=== PATIENT | male | born 1935 | race Caucasian/White ===

== ENCOUNTER 2017-12-16 12:39 | Observation (INO) ==
[2017-12-16] MEDS ORDERED: Nitroglycerin 0.4 MG TAB.SUBL SL ONE (13:08)
[2017-12-16] MEDS ORDERED: Aspirin 81 MG TAB.CHEW PO ONE (13:08)
[2017-12-16] MEDS ORDERED: Isovue-370 500 ML INFUS..BTL IV ONE (13:11)
--- NOTE | 2017-12-16 13:12 | Emergency Department Note ---
Disposition Clinical Impression: NSTEMI (non-ST elevated myocardial infarction) Disposition: Admitted As Inpatient Condition: Fair Chest Pain HPI - General Chief Complaint: ED Chest Pain Stated Complaint: chest pain Time Seen by Provider: 12/16/17 12:55 Source: patient Limitations: no limitations Vital Signs Reviewed: Yes Nursing Notes Reviewed: Yes - History of Present Illness HPI Narrative: 52-year-old male presents emergency department with concern for chest pain. Patient states that he has history of coronary artery disease with 5 stents, but has never felt this type of pain before. Patient states that his like a pressure that he feels is almost a nauseous feeling. Patient has had no aspirin today. Patient also has history of hypertension and hyperlipidemia. Patient was riding a vehicle when it started. Reports that his high blood pressure is normally under control. Severity scale (1-10): 8 - Related Data Home Medications Medication Instructions Recorded Confirmed Levothyroxine [Synthroid] 75 mcg PO DAILY 05/19/15 12/16/17 Atorvastatin [Lipitor] 10 mg PO HS 12/05/16 12/16/17 Clopidogrel [Plavix] 75 mg PO DAILY 12/05/16 12/16/17 Previous Rx's Medication Instructions Recorded HYDROcodone/Acet 5/325 mg [[place] 1 tab PO Q6H PRN #10 tab 12/05/16 5-325 mg] Allergies Allergy/AdvReac Type Severity Reaction Status Date / Time lisinopril Allergy Rash Verified 12/16/17 12:48 metoprolol Allergy See Verified 12/16/17 12:48 Comments All systems ED: reviewed and negative except as stated. Review of Systems: As Per HPI Constitutional: Denies: fever Cardiovascular: Reports: chest pain. Denies: palpitations, dyspnea on exertion Respiratory: Reports: dyspnea. Denies: cough Gastrointestinal: Denies: abdominal pain, nausea, vomiting Genitourinary: Denies: urgency, dysuria, frequency Musculoskeletal: Denies: back pain Neurological: Denies: headache, weakness, numbness, paresthesias Chest Pain PMH - Past Medical History Medical history: Reports: arthritis, coronary artery disease, hypertension, thyroid disease Surgical history: Reports: angioplasty/stent Psychiatric history: Reports: no psych history - Social History Smoking Status: Never smoker Alcohol use: Reports: rarely Drug use: Reports: none Physical Exam - General Limitations: no limitations General appearance: alert, in distress - Head Head exam: atraumatic, normocephalic - Eye Eye exam: Present: EOMI. Absent: scleral icterus, conjunctival injection - ENT ENT exam: normal exam, normal oropharynx - Neck Neck exam: Present: trachea midline. Absent: tenderness, meningismus - Chest Chest inspection: Present: normal inspection, symmetric chest wall rise - Respiratory Respiratory exam: Present: normal lung sounds bilaterally. Absent: respiratory distress - Cardiovascular Cardiovascular exam: Present: regular rate, normal rhythm, normal heart sounds - Abdominal Exam Abdominal exam: Present: soft, Non-Tender. Absent: distention, guarding, rebound, rigidity - Extremities Exam Extremities exam: Present: normal capillary refill - Back Exam Back exam: Present: full ROM - Neurological Exam Neurological exam: Present: alert, oriented X3 - Psychiatric Psychiatric exam: Present: normal affect, normal mood - Skin Skin exam: Present: warm, dry, intact Course Vital Signs Temperature 98.5 F 12/16/17 12:46 Pulse Rate 59 12/16/17 12:46 Respiratory Rate 22 12/16/17 12:46 Blood Pressure 190/95 12/16/17 12:46 O2 Sat by Pulse Oximetry 99 12/16/17 12:46 Temperature 98.4 F 12/17/17 06:59 Pulse Rate 60 12/17/17 06:59 Respiratory Rate 19 12/17/17 06:59 Blood Pressure 118/67 12/17/17 06:59 O2 Sat by Pulse Oximetry 98 12/17/17 06:59 Oxygen Delivery Oxygen Delivery Room Air Chest Pain - [facility] Narrative Medical decision making narrative: 82-year-old male presents to the emergency department with concern for chest pain. We will obtain electrocardiogram. This revealed some nonspecific ST changes. We order a troponin, BNP, BMP, portable chest x-ray. Patient is hypertensive here with a systolic approaching 200 over a diastolic that is in the low 100s. At this time, we will also obtain a CTA of the chest to rule out dissection. We have given patient aspirin here in the emergency department. We will also give sublingual nitroglycerin. Date of the chest did not reveal any evidence of pulmonary embolus or aortic dissection. Did report aortic and coronary atherosclerosis. After sedation of sublingual nitroglycerin, patient's chest pain went away. We repeated an electrocardiogram. Shows septal and lateral leads and T-wave changes in morphology that are concerning. I spoke with Dr. Hill, the molder pipe covering with these findings. He agreed to be the consult on the floor. Patient had initial troponin 0.05. However, with the early onset of symptoms, there is concern that the patient's troponin could be more elevated. We started patient on heparin via ACS protocol. The patient agreed for plan to be admitted. Patient not having chest pain at time of admission from the emergency department. Chest X-Ray 12/16/17 13:08 IMPRESSION: Overall stable appearing chest without acute cardiopulmonary process. D/ / Evangelista Linares MD / Evangelista Linares MD Interpreting Provider: Evangelista Linares MD Chest CTA 12/16/17 13:11 IMPRESSION: 1. No acute pulmonary emboli. 2. No acute pulmonary process. 3. Aortic and coronary atherosclerosis. D/ / 12/16/2017 15:20:36 Obi Fowler MD / mayuri Interpreting Provider: Obi Fowler MD - Lab Data Result diagrams: 12/17/17 03:08 12/17/17 03:08 Lab Results 12/16/17 12/16/17 12/16/17 Range/Units 13:18 13:18 13:18 WBC 6.9 (4.3-11.1) K/mcL RBC 4.87 (4.19-5.50) M/mcL Hgb 14.5 (12.9-16.9) g/dL Hct 43.6 (37.5-50.1) % MCV 89.5 (83.0-100.0) fL MCH 29.8 (28.0-33.3) pg MCHC 33.3 (31.6-35.5) g/dL RDW 13.4 (11.5-14.5) % Plt Count 161 (140-400) K/mcL MPV 10.7 (9.4-12.4) fL Immature Gran % 0.6 (0-4) % Seg Neutrophils % 66.4 % Lymphocytes % 20.6 % Monocytes % 8.9 % Eosinophils % 2.6 % Basophils % 0.9 % Neutrophils # 4.6 (1.6-8.9) K/mcL Lymphocytes # 1.4 (0.6-4.6) K/mcL Monocytes # 0.6 (0.0-1.3) K/mcL Eosinophils # 0.2 (0.0-0.6) K/mcL Basophils # 0.1 (0.0-0.2) K/mcL PT 10.5 (9.4-12.1) Seconds INR 1.0 APTT 26.8 (26.0-36.0) Seconds Sodium (136-145) mEq/L Potassium (3.5-5.1) mEq/L Chloride (98-107) mEq/L Carbon Dioxide (23-29) mEq/L BUN (8-23) mg/dL Creatinine (0.70-1.30) mg/dL Est GFR ( Amer) (> 60) Est GFR (Non-Af Amer) (> 60) BUN/Creatinine Ratio (6-26) Glucose (70-105) mg/dL Calculated Osmolality (280-300) Calcium (8.6-10.3) mg/dL Troponin I (< 0.04) ng/mL B-Natriuretic Peptide 78 (Less than 100) pg/mL 12/16/17 Range/Units 13:18 WBC (4.3-11.1) K/mcL RBC (4.19-5.50) M/mcL Hgb (12.9-16.9) g/dL Hct (37.5-50.1) % MCV (83.0-100.0) fL MCH (28.0-33.3) pg MCHC (31.6-35.5) g/dL RDW (11.5-14.5) % Plt Count (140-400) K/mcL MPV (9.4-12.4) fL Immature Gran % (0-4) % Seg Neutrophils % % Lymphocytes % % Monocytes % % Eosinophils % % Basophils % % Neutrophils # (1.6-8.9) K/mcL Lymphocytes # (0.6-4.6) K/mcL Monocytes # (0.0-1.3) K/mcL Eosinophils # (0.0-0.6) K/mcL Basophils # (0.0-0.2) K/mcL PT (9.4-12.1) Seconds INR APTT (26.0-36.0) Seconds Sodium 139 (136-145) mEq/L Potassium 4.7 (3.5-5.1) mEq/L Chloride 106 (98-107) mEq/L Carbon Dioxide 22 L (23-29) mEq/L BUN 18 (8-23) mg/dL Creatinine 1.12 (0.70-1.30) mg/dL Est GFR ( Amer) > 60 (> 60) Est GFR (Non-Af Amer) > 60 (> 60) BUN/Creatinine Ratio 16 (6-26) Glucose 103 (70-105) mg/dL Calculated Osmolality 290 (280-300) Calcium 9.0 (8.6-10.3) mg/dL Troponin I 0.05 H* (< 0.04) ng/mL B-Natriuretic Peptide (Less than 100) pg/mL - EKG Data EKG attestation: Yes I reviewed and interpreted this EKG. EKG results narrative: 12:45 Ventricular rate 62 bpm, OK interval 240 ms, QRS duration 94 ms, QT 413 ms, QTC 482 ms, normal axis. Atrial paced rhythm. There are nonspecific ST changes noted. ST depression of 1 mm in V2 and 0.5 mm in V3 that is new from his previous electrocardiogram obtained on 12/05/2016.
[2017-12-16 13:44] LABS: Basophils # 0.1 K/mcL (0.0-0.2); Basophils % 0.9 %; Eosinophils # 0.2 K/mcL (0.0-0.6); Eosinophils % 2.6 %; Hematocrit 43.6 % (37.5-50.1); Hemoglobin 14.5 g/dL (12.9-16.9); Immature Granulocytes % 0.6 % (0-4); Lymphocytes # 1.4 K/mcL (0.6-4.6); Lymphocytes % 20.6 %; Mean Corpuscular HGB Conc 33.3 g/dL (31.6-35.5); Mean Corpuscular Hemoglobin 29.8 pg (28.0-33.3); Mean Corpuscular Volume 89.5 fL (83.0-100.0); Mean Platelet Volume 10.7 fL (9.4-12.4); Monocytes # 0.6 K/mcL (0.0-1.3); Monocytes % 8.9 %; Neutrophils # 4.6 K/mcL (1.6-8.9); Platelet Count 161 K/mcL (140-400); Red Blood Count 4.87 M/mcL (4.19-5.50); Red Cell Distribution Width 13.4 % (11.5-14.5); Segmented Neutrophils % 66.4 %
[2017-12-16 13:53] LABS: Prothrombin Time 10.5 Seconds (9.4-12.1)
[2017-12-16 13:56] LABS: Activated Partial Thrombo Time 26.8 Seconds (26.0-36.0)
[2017-12-16 14:18] LABS: Troponin I 0.05 ng/mL (< 0.04)
[2017-12-16 14:19] LABS: BUN/Creatinine Ratio 16 (6-26); Blood Urea Nitrogen 18 mg/dL (8-23); Carbon Dioxide 22 mEq/L (23-29); Chloride 106 mEq/L (98-107); Glucose 103 mg/dL (70-105); Osmolality,Calculated 290 (280-300); Potassium 4.7 mEq/L (3.5-5.1); Sodium 139 mEq/L (136-145); eGFR For African Americans > 60 (> 60); eGFR For Non-African Americans > 60 (> 60)
[2017-12-16] MEDS ORDERED: *HR* Heparin 5,000 UNIT/ML VIAL IVP ONE (14:29)
[2017-12-16] MEDS ORDERED: *HR* Heparin 5,000 UNIT/ML VIAL IVP PRN ×2 (14:29)
[2017-12-16] MEDS ORDERED: Heparin 25,000 UNIT/500 ML D5W 25,000 UNIT/500 ML BAG IVC SCH (14:30)
--- NOTE | 2017-12-16 14:56 | Emergency Department Note ---
Disposition Clinical Impression: NSTEMI (non-ST elevated myocardial infarction) Disposition: Admitted As Inpatient Forms: ED Satisfaction Letter General Adult HPI - General Chief complaint: ED Chest Pain Stated complaint: chest pain Time Seen by Provider: 12/16/17 12:55 Source: patient Limitations: no limitations - History of Present Illness Pain Scale: 8 - Related Data Home Medications Medication Instructions Recorded Confirmed Levothyroxine [Synthroid] 75 mcg PO DAILY 05/19/15 12/16/17 Atorvastatin [Lipitor] 10 mg PO HS 12/05/16 12/16/17 Clopidogrel [Plavix] 75 mg PO DAILY 12/05/16 12/16/17 Previous Rx's Medication Instructions Recorded HYDROcodone/Acet 5/325 mg [[place] 1 tab PO Q6H PRN #10 tab 12/05/16 5-325 mg] Allergies Allergy/AdvReac Type Severity Reaction Status Date / Time lisinopril Allergy Rash Verified 12/16/17 12:48 metoprolol Allergy See Verified 12/16/17 12:48 Comments Constitutional: Denies: fever Cardiovascular: Reports: chest pain. Denies: palpitations, dyspnea on exertion Respiratory: Reports: dyspnea. Denies: cough Gastrointestinal: Denies: abdominal pain, nausea, vomiting Genitourinary: Denies: urgency, dysuria, frequency Musculoskeletal: Denies: back pain Neurological: Denies: headache, weakness, numbness, paresthesias Past Medical History - Past Medical History Medical history: Reports: arthritis, coronary artery disease, hypertension, thyroid disease Surgical history: Reports: angioplasty/stent Psychiatric history: Reports: no psych history - Social History Smoking Status: Never smoker Smokeless Tobacco Status: No Alcohol use: Reports: rarely Drug use: Reports: none Physical Exam - General Limitations: no limitations General appearance: alert, in distress Course Vital Signs Temperature 98.5 F 12/16/17 12:46 Pulse Rate 59 12/16/17 12:46 Respiratory Rate 22 12/16/17 12:46 Blood Pressure 190/95 12/16/17 12:46 O2 Sat by Pulse Oximetry 99 12/16/17 12:46 Temperature 98.5 F 12/16/17 12:46 Pulse Rate 60 12/16/17 14:19 Respiratory Rate 18 12/16/17 14:19 Blood Pressure 138/81 12/16/17 14:19 O2 Sat by Pulse Oximetry 95 12/16/17 14:19 Oxygen Delivery Oxygen Delivery Room Air Medical Decision Making - Lab Data Result diagrams: 12/16/17 13:18 12/16/17 13:18 Lab Results 12/16/17 12/16/17 12/16/17 Range/Units 13:18 13:18 13:18 WBC 6.9 (4.3-11.1) K/mcL RBC 4.87 (4.19-5.50) M/mcL Hgb 14.5 (12.9-16.9) g/dL Hct 43.6 (37.5-50.1) % MCV 89.5 (83.0-100.0) fL MCH 29.8 (28.0-33.3) pg MCHC 33.3 (31.6-35.5) g/dL RDW 13.4 (11.5-14.5) % Plt Count 161 (140-400) K/mcL MPV 10.7 (9.4-12.4) fL Immature Gran % 0.6 (0-4) % Seg Neutrophils % 66.4 % Lymphocytes % 20.6 % Monocytes % 8.9 % Eosinophils % 2.6 % Basophils % 0.9 % Neutrophils # 4.6 (1.6-8.9) K/mcL Lymphocytes # 1.4 (0.6-4.6) K/mcL Monocytes # 0.6 (0.0-1.3) K/mcL Eosinophils # 0.2 (0.0-0.6) K/mcL Basophils # 0.1 (0.0-0.2) K/mcL PT 10.5 (9.4-12.1) Seconds INR 1.0 APTT 26.8 (26.0-36.0) Seconds Sodium (136-145) mEq/L Potassium (3.5-5.1) mEq/L Chloride (98-107) mEq/L Carbon Dioxide (23-29) mEq/L BUN (8-23) mg/dL Creatinine (0.70-1.30) mg/dL Est GFR ( Amer) (> 60) Est GFR (Non-Af Amer) (> 60) BUN/Creatinine Ratio (6-26) Glucose (70-105) mg/dL Calculated Osmolality (280-300) Calcium (8.6-10.3) mg/dL Troponin I (< 0.04) ng/mL B-Natriuretic Peptide 78 (Less than 100) pg/mL 12/16/17 Range/Units 13:18 WBC (4.3-11.1) K/mcL RBC (4.19-5.50) M/mcL Hgb (12.9-16.9) g/dL Hct (37.5-50.1) % MCV (83.0-100.0) fL MCH (28.0-33.3) pg MCHC (31.6-35.5) g/dL RDW (11.5-14.5) % Plt Count (140-400) K/mcL MPV (9.4-12.4) fL Immature Gran % (0-4) % Seg Neutrophils % % Lymphocytes % % Monocytes % % Eosinophils % % Basophils % % Neutrophils # (1.6-8.9) K/mcL Lymphocytes # (0.6-4.6) K/mcL Monocytes # (0.0-1.3) K/mcL Eosinophils # (0.0-0.6) K/mcL Basophils # (0.0-0.2) K/mcL PT (9.4-12.1) Seconds INR APTT (26.0-36.0) Seconds Sodium 139 (136-145) mEq/L Potassium 4.7 (3.5-5.1) mEq/L Chloride 106 (98-107) mEq/L Carbon Dioxide 22 L (23-29) mEq/L BUN 18 (8-23) mg/dL Creatinine 1.12 (0.70-1.30) mg/dL Est GFR ( Amer) > 60 (> 60) Est GFR (Non-Af Amer) > 60 (> 60) BUN/Creatinine Ratio 16 (6-26) Glucose 103 (70-105) mg/dL Calculated Osmolality 290 (280-300) Calcium 9.0 (8.6-10.3) mg/dL Troponin I 0.05 H* (< 0.04) ng/mL B-Natriuretic Peptide (Less than 100) pg/mL Attestation Statement - Attestation Attestation: I examined this patient and my medical decision-making was reviewed with the Resident Physician. I agree with the documented findings, disposition and treatment plan as described except to the extent set forth below. 82 year old male presnte to the eD with complaints of chest pain and has a history of 5 cardaic stents done at [facility]. Patient states that he has have right sided chest pressure and that nitro trial helped him with his symptoms. 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 We will start heparin for NSTEMI.
[2017-12-16] MEDS ORDERED: Nitroglycerin 1 INCH/GM PACKET TP ONE (16:10)
[2017-12-16] MEDS ORDERED: Naloxone 0.4 MG/ML INJ IVP PRN (16:14)
--- NOTE | 2017-12-16 16:19 | Internal Med History&Physical ---
Date of Encounter: 12/16/17 Time of Encounter: 16:17 Internal Medicine - H&P: HPI Chief complaint: Chest pain History of present illness: Mr. Valenzuela is a 82 year old male history of CAD status post 5 stents last being at least 5 or 6 years ago possibly in 2010 who. With cardiology in [place] Dr Neli Treviño who presents with acute onset right-sided chest pain. Chest pain or crit 20 minutes prior to arrival this afternoon while he was out shopping with ambulation around store. Described her right-sided chest pain along the breast with radiation to the right armpit/ axilla, rated 10 out of 10 in the initial onset, aching quality. On arrival in the ED was started on heparin drip when there was mild troponin elevation. On interview chest pain was resolved. He reports a history of uncontrolled hypertension and is only on 100 mg of losartan daily Receive CT PE in the ED that was negative CT/CT angio chest IMPRESSION: 1. No acute pulmonary emboli. 2. No acute pulmonary process. 3. Aortic and coronary atherosclerosis. XR/XR chest 1V portable IMPRESSION: Overall stable appearing chest without acute cardiopulmonary process. EKG personally reviewed with rate 61, paced rhythm, nonspecific ST-T changes Past Med Surg Social Fam HX - Past Medical History Medical history: arthritis, coronary artery disease, hypertension, thyroid disease Psychiatric history: no psych history - Past Surgical History Surgical History: angioplasty/stent Additional surgical history: cardiac stent - Social History Smoking Status: Never smoker Smokeless Tobacco Status: No Alcohol use: rarely Drug use: none Internal Medicine - H&P: Meds Levothyroxine [Synthroid] 75 mcg PO DAILY 05/19/15 [History] Atorvastatin [Lipitor] 10 mg PO HS 12/05/16 [History] Clopidogrel [Plavix] 75 mg PO DAILY 12/05/16 [History] HYDROcodone/Acet 5/325 mg [[place] 5-325 mg] 1 tab PO Q6H PRN #10 tab 12/05/16 [Rx ] 3 Allergy/AdvReac Type Severity Reaction Status Date / Time lisinopril Allergy Rash Verified 12/16/17 12:48 metoprolol Allergy See Verified 12/16/17 12:48 Comments All Systems PM: A 10-system review of systems was performed and is negative for pertinent findings except as documented above in the HPI. Review of systems: ROS 14 point review of systems reviewed as best as possible given presentation. Pertinent positive or negative as per HPI or otherwise reviewed as negative - Constitutional Vitals: Temp Pulse Resp BP Pulse Ox 98.5 F 61 18 191/119 95 12/16/17 12:46 12/16/17 15:53 12/16/17 15:53 12/16/17 15:53 12/16/17 15:53 Exam: General - AAO x 3 Psych - Appropriate affect/speech. No agitation Eyes - JERROD. Eye lids intact. No scleral icterus Neuro - No gross peripheral or central neuro deficits on inspection Heart - Sinus. RRR. S1 and S2 present. No added HS/murmurs appreciated. No elevated JVD appreciated. Lung - Adequate air entry b/l, No crackles/wheezes appreciated GI - Soft, non-tender. No hepatosplenomegaly/ascites. BS+ - No CVA/suprapubic tenderness or palpable bladder distension Skin - Intact. No rash/petechiae/ecchymosis. Warm extremities MSK - Joints with normal ROM. No joint swellings Internal Med - H&P Results - Labs CBC & Chem 7: 12/16/17 13:18 12/16/17 13:18 Labs: Short CBC 12/16/17 Range/Units 13:18 WBC 6.9 (4.3-11.1) K/mcL Hgb 14.5 (12.9-16.9) g/dL Hct 43.6 (37.5-50.1) % Plt Count 161 (140-400) K/mcL Neutrophils # 4.6 (1.6-8.9) K/mcL BMP 12/16/17 13:18 Sodium 139 Potassium 4.7 Chloride 106 Carbon Dioxide 22 L BUN 18 Creatinine 1.12 Glucose 103 Calcium 9.0 Cardiac Enzymes 12/16/17 Range/Units 13:18 Troponin I 0.05 H* (< 0.04) ng/mL - Impressions ITS Impressions Chest X-Ray 12/16/17 13:08 IMPRESSION: Overall stable appearing chest without acute cardiopulmonary process. D/ / Evangelista Linares MD / Evangelista Linares MD Interpreting Provider: vEangelista Linares MD Chest CTA 12/16/17 13:11 IMPRESSION: 1. No acute pulmonary emboli. 2. No acute pulmonary process. 3. Aortic and coronary atherosclerosis. D/ / 12/16/2017 15:20:36 Obi Fowler MD / mayuri Interpreting Provider: Obi Fowler MD - Assessment and plan (1) Chest pain Current Visit: Yes Status: Acute Assessment and plan: trop leak - trend trop - heparin gtt started in the ED chest pain free on interview, will need to control uncontrolled HTN - suspect troponin elevation could be related to uncontrolled hypertension Qualifiers: Chest pain type: other chest pain Qualified Code(s): R07.89 - Other chest pain; R07.8 - Other chest pain (2) Hypertensive urgency Current Visit: Yes Status: Acute Assessment and plan: only on 100mg losartan at home add norvasc, imdur IV hydralazine prn in an attempt to spare gtt therapy (3) CAD (coronary artery disease) Current Visit: Yes Status: Acute Assessment and plan: s/p 5 stents - follow closely for now Qualifiers: Associated angina: without angina Qualified Code(s): I25.10 - Atherosclerotic heart disease of [place] coronary artery without angina pectoris (4) HLD (hyperlipidemia) Current Visit: Yes Status: Acute Assessment and plan: continue med Qualifiers: Hyperlipidemia type: mixed hyperlipidemia Qualified Code(s): E78.2 - Mixed hyperlipidemia - Time Spent With Patient Total time spent is greater than 50% in coordination of care (as documented) at patient's floor/unit and/or counseling patient:
[2017-12-16] MEDS ORDERED: Isosorbide MONOnitrate (24 HR) 30 MG TAB.ER.24H PO SCH (18:00)
[2017-12-16] MEDS: amLODIPine 5 MG TABLET PO SCH (18:01)
--- NOTE | 2017-12-16 22:09 | Electrocardiograph Report ---
[facility] Test Date: 2017-12-16 Pat Name: Konrad Valenzuela Department: 104 Room: 2S7 Gender: M [employer]ist: : [id number] Requested By: Mariana Addison Order Number: [id number] Reading MD: Moreno Joya Measurements Intervals [place] Rate: 62 P: 81 WI: 248 QRS: 13 QRSD: 94 T: 86 QT: 413 QTc: 418 Interpretive Statements ELECTRONIC [employer]EM[employer]ER MODERATE ST DEPRESSION Electronically Signed On 12-16-2017 22:07:29 EDT by Moreno Joya
--- NOTE | 2017-12-16 22:39 | Event Note ---
Date of Encounter: 12/16/17 Time of Encounter: 22:15 Called to see patient for troponin of 10.5. Patient now with chest pain of whereas it was 9-04/15 upon presentation. Repeat troponin is 10.5. I called and discussed with Dr. Cheney (Cardiology). He and I reviewed his current EKG and requests patient remain on heparin drip and nitroglycerin drip. Patient to have LHC in the morning per Dr. Cheney.
[2017-12-16] MEDS ORDERED: *HR* HYDROcodone/Acet 5/325 mg TABLET PO PRN (22:45)
[2017-12-16] MEDS ORDERED: Nitroglycerin 25 MG/250 ML INFUS..BTL IVC SCH (22:45)
[2017-12-17 03:44] LABS: Basophils % 0.4 %; Eosinophils # 0.2 K/mcL (0.0-0.6); Eosinophils % 3.4 %; Hematocrit 37.7 % (37.5-50.1); Immature Granulocytes % 0.3 % (0-4); Immature Platelets 4.2 % (1.1-6.1); Lymphocytes # 1.6 K/mcL (0.6-4.6); Mean Corpuscular HGB Conc 33.7 g/dL (31.6-35.5); Mean Corpuscular Volume 88.9 fL (83.0-100.0); Mean Platelet Volume 10.9 fL (9.4-12.4); Monocytes # 0.6 K/mcL (0.0-1.3); Monocytes % 8.7 %; Neutrophils # 4.3 K/mcL (1.6-8.9); Platelet Count 149 K/mcL (140-400); Red Blood Count 4.24 M/mcL (4.19-5.50); Red Cell Distribution Width 13.6 % (11.5-14.5); Segmented Neutrophils % 63.2 %
[2017-12-17 03:45] LABS: Hemoglobin 12.7 g/dL (12.9-16.9)
[2017-12-17 03:52] LABS: BUN/Creatinine Ratio 17 (6-26); Blood Urea Nitrogen 18 mg/dL (8-23); Calcium 8.7 mg/dL (8.6-10.3); Carbon Dioxide 20 mEq/L (23-29); Chloride 107 mEq/L (98-107); Glucose 99 mg/dL (70-105); Osmolality,Calculated 290 (280-300); Potassium 3.8 mEq/L (3.5-5.1); Sodium 139 mEq/L (136-145); eGFR For African Americans > 60 (> 60); eGFR For Non-African Americans > 60 (> 60)
[2017-12-17 05:50] LABS: Heparin anti-factor XA UFH 0.54 IU/mL (0.30-0.70)
--- NOTE | 2017-12-17 05:53 | Event Note ---
Date of Encounter: 12/17/17 Time of Encounter: 01:30 - Cardiology Event Note 2nd discussion with Dr. Alcantar at 0130, patient is asymptomatic and appears in no distress. Thank you for the consult, plan for [facility] this morning.
[2017-12-17 06:48] LABS: Activated Partial Thrombo Time 66.3 Seconds (26.0-36.0)
--- NOTE | 2017-12-17 09:17 | Cardiology Consult Note ---
<Thomas Rahman R - Last Filed: 12/17/17 09:15> Date of Encounter: 12/17/17 Time of Encounter: 09:15 Assessment and Plan (1) NSTEMI (non-ST elevated myocardial infarction) Current Visit: Yes Status: Acute Peak troponin 11.06, presented with right sided chest pain, relieved with nitro. Currently chest pain free. EKG no prior comparison, anterior ischemia. Hx of PCI. On heparin gtt and nitro gtt. Start ASA. Continue Statin, Plavix, ARB. BB listed as allergy--will determine reaction and if can be started. Recommend [facility]. R/B/A discussed. Pt agrees to proceed. [facility] today. TTE to evaluate structure and function. (2) CAD (coronary artery disease) Current Visit: Yes Status: Acute Known prior CAD and PCI. ASA, Plavix, Statin, ARB. BB listed as allergy. Qualifiers: Coronary Disease-Associated Artery/Lesion type: [place] artery [place] vs. transplanted heart: [place] heart Associated angina: angina presence unspecified Qualified Code(s): I25.10 - Atherosclerotic heart disease of [place] coronary artery without angina pectoris Discussion w patient/family: The assessment and plan as outlined above was discussed with the patient and/or family members who expressed understanding and agreement. All questions were answered. Thank you for involving us in the care of your patient. Please call with any questions. I will discuss all the above with Dr. Hill and make changes as necessary. History of Present Illness Consult date: 12/17/17 Requesting physician: Keara Clarke Consult reason: NSTEMI Chief complaint: chest pain History of present illness: Mr. 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 He was visiting and presented with acute onset right-sided chest pain yesterday, described as achy in nature. Denies radiation of pain or any other associated symptoms. Relieved with nitro, currently chest pain free. Troponins 0.05, 10.50, 11.06. Cardiology consulted for further recs. Past Med Surg Social Fam HX - Past Medical History Medical history: arthritis, coronary artery disease, hypertension, thyroid disease Psychiatric history: no psych history - Past Surgical History Surgical History: angioplasty/stent Additional surgical history: cardiac stent - Social History Smoking Status: Never smoker Smokeless Tobacco Status: No Alcohol use: rarely Drug use: none Medications and Allergies Levothyroxine [Synthroid] 75 mcg PO DAILY 05/19/15 [History] Atorvastatin [Lipitor] 10 mg PO HS 12/05/16 [History] Clopidogrel [Plavix] 75 mg PO DAILY 12/05/16 [History] HYDROcodone/Acet 5/325 mg [[place] 5-325 mg] 1 tab PO Q6H PRN #10 tab 12/05/16 [Rx ] 3 Allergy/AdvReac Type Severity Reaction Status Date / Time lisinopril Allergy Rash Verified 12/16/17 12:48 metoprolol Allergy See Verified 12/16/17 12:48 Comments All Systems Review: The remainder of the systems were reviewed and are negative - Cardiovascular Cardiovascular: as per HPI, chest pain at rest, chest pain with exertion Physical Examination Vital Signs, Last 4 Hours Temp Pulse Resp BP Pulse Ox 12/17/17 06:59 98.4 F 60 19 118/67 98 Vital Signs Temp Pulse Resp BP Pulse Ox 12/17/17 06:59 98.4 F 60 19 118/67 98 12/17/17 05:14 64 16 133/77 97 12/17/17 04:00 60 121/69 12/17/17 03:00 59 117/71 12/17/17 02:00 59 130/70 12/17/17 01:30 68 149/36 12/17/17 01:00 62 111/78 12/17/17 00:15 62 121/65 12/17/17 00:00 72 121/64 12/16/17 23:45 60 116/68 12/16/17 23:31 97.8 F 59 18 120/67 99 12/16/17 23:30 59 131/71 12/16/17 23:25 61 130/86 12/16/17 23:20 62 135/85 12/16/17 23:15 59 136/81 12/16/17 22:06 98.0 F 61 18 125/74 96 12/16/17 19:28 97.6 F 78 18 143/80 93 12/16/17 17:36 98 12/16/17 16:28 97.7 F 63 22 177/90 100 12/16/17 15:53 61 18 191/119 95 12/16/17 14:19 60 18 138/81 95 12/16/17 13:21 61 18 95 12/16/17 12:46 98.5 F 59 22 190/95 99 Intake and Output 12/16/17 12/17/17 12/17/17 23:59 07:59 15:59 Intake Total 529 / 529 172 / 172 Balance 529 / 529 172 / 172 Intake: IV Fluids 169 / 169 172 / 172 Heparin 25,000 UNIT/500 ML D5W 169 / 169 172 / 172 25,000 unit In 500 ml @ 12 UNIT /KG/HR 22.861 mls/hr IVC . [id number] [facility] Rx#:[id number] Oral 360 / 360 Other: Meal Dinner Percent of Meal Consumed 100% Blood Glucose* 96 General: Conversant, No Apparent Distress HEENT: Atraumatic, Normocephaly, Mucus Membranes Moist Neck: No JVD, Normal carotid pulses Cardiac: Reg Rate and Rhythm, Normal S1 and S2, No Murmur Lungs: Normal Breath Sounds, No Wheeze, Rales, Rhonchi Neuro: Alert and responsive, No focal deficits noted Abdomen: Soft, Non-Tender Skin: No rashes noted on visualized skin Musculoskeletal: No Chest Wall Tenderness Extremities: No Clubbing, No Cyanosis, No Edema, Normal Pulses Results 12/17/17 03:08 12/17/17 03:08 Lab Results 12/16/17 12/16/17 12/17/17 20:32 22:42 03:08 WBC Hgb Hct Plt Count APTT 69.6 H D Sodium Potassium Chloride Carbon Dioxide BUN Creatinine Glucose Calcium Troponin I 10.50 H* 11.06 H* 12/17/17 12/17/17 12/17/17 03:08 03:08 05:06 WBC 6.8 Hgb 12.7 L D Hct 37.7 Plt Count 149 APTT 66.3 H Sodium 139 Potassium 3.8 Chloride 107 Carbon Dioxide 20 L BUN 18 Creatinine 1.04 Glucose 99 Calcium 8.7 Troponin I Short CBC 12/17/17 12/16/17 Range/Units 03:08 13:18 WBC 6.8 6.9 (4.3-11.1) K/mcL Hgb 12.7 L D 14.5 (12.9-16.9) g/dL Hct 37.7 43.6 (37.5-50.1) % Plt Count 149 161 (140-400) K/mcL Neutrophils # 4.3 4.6 (1.6-8.9) K/mcL BMP 12/17/17 12/16/17 Range/Units 03:08 13:18 Sodium 139 139 (136-145) mEq/L Potassium 3.8 4.7 (3.5-5.1) mEq/L Chloride 107 106 (98-107) mEq/L Carbon Dioxide 20 L 22 L (23-29) mEq/L BUN 18 18 (8-23) mg/dL Creatinine 1.04 1.12 (0.70-1.30) mg/dL Glucose 99 103 (70-105) mg/dL Calcium 8.7 9.0 (8.6-10.3) mg/dL Cardiac Enzymes 12/17/17 12/16/17 12/16/17 Range/Units 03:08 20:32 13:18 Troponin I 11.06 H* 10.50 H* 0.05 H* (< 0.04) ng/mL Impressions Chest X-Ray 12/16/17 13:08 IMPRESSION: Overall stable appearing chest without acute cardiopulmonary process. D/ / Evangelista Linares MD / Evangelista Linares MD Interpreting Provider: Evangelista Linares MD Chest CTA 12/16/17 13:11 IMPRESSION: 1. No acute pulmonary emboli. 2. No acute pulmonary process. 3. Aortic and coronary atherosclerosis. D/ / 12/16/2017 15:20:36 Obi Fowler MD / mayuri Interpreting Provider: Obi Fowler MD Active Medications Hydrocodone Bitart/Acetaminophen ([place] 5-325 Mg) 1 tab PO Q6HR PRN PRN Reason: Pain Stop: 06/17/18 22:46 Amlodipine Besylate (Norvasc) 10 mg PO DAILY LUDWIN PRN Reason: Protocol Stop: 06/17/18 16:16 Last Admin: 12/16/17 18:01 Dose: 10 mg Atorvastatin Calcium (Lipitor) 10 mg PO HS LUDWIN Stop: 06/17/18 21:01 Last Admin: 12/16/17 22:21 Dose: 10 mg Clopidogrel Bisulfate (Plavix) 75 mg PO DAILY LUDWIN Stop: 06/18/18 09:01 Heparin Sodium (Porcine) (Heparin Lock) 500 unit IV ONCE PRN PRN Reason: Port Flush while in RADIOLOGY Stop: 12/18/17 13:12 Heparin Sodium (Porcine) (Heparin) 4,000 unit IVP Q6HR PRN PRN Reason: SEE COMMENTS Stop: 06/17/18 14:30 Heparin Sodium (Porcine) (Heparin) 2,000 unit IVP Q6H PRN PRN Reason: SEE COMMENTS Stop: 06/17/18 14:30 Hydralazine HCl (Hydralazine) 10 mg IVP Q4H PRN PRN Reason: Hypertension Stop: 06/17/18 16:14 Heparin Sodium/Dextrose (Heparin 25,000 Unit/500 Ml D5w) 25,000 unit in 500 mls @ 22.861 mls/hr IVC .[id number] LUDWIN; 12 UNIT/KG/HR PRN Reason: Protocol Stop: 06/17/18 14:31 Last Titration: 12/17/17 07:01 Dose: 12 unit/kg/hr, 22.861 mls/hr Nitroglycerin (Nitroglycerin Premix 25 Mg/250 Ml) 25 mg in 250 mls @ 3 mls/hr IVC .Q24H LUDWIN; 5 MCG/MIN PRN Reason: Protocol Stop: 06/17/18 22:46 Last Admin: 12/16/17 23:17 Dose: 5 mcg/min, 3 mls/hr Levothyroxine Sodium (Synthroid) 75 mcg PO 0630 LUDWIN Stop: 06/18/18 06:31 Last Admin: 12/17/17 05:19 Dose: Not Given Losartan Potassium (Cozaar) 100 mg PO DAILY LUDWIN PRN Reason: Protocol Stop: 06/18/18 09:01 Naloxone HCl (Narcan) 0.4 mg IVP Q2MIN PRN PRN Reason: SEE COMMENTS Stop: 06/17/18 16:15 - EKG Interpretation EKG results cardiology: personally reviewed Consult Discharge Plan - Plan Referrals: NONE,PCP [Primary Care Provider] - <Cain Hill - Last Filed: 12/17/17 11:37> Date of Encounter: 12/17/17 - Attending Attestation I have personally performed a face to face evaluation on this patient. I have reviewed and agree with the care plan. History and Exam by me shows: 82 YOM with NSTEMI, chest pain currently resolved IV heparin, continue plavix [facility] today, R/B/A d/w pt and he agrees to proceed Assessment and Plan Discussion w patient/family: The assessment and plan as outlined above was discussed with the patient and/or family members who expressed understanding and agreement. All questions were answered. Thank you for involving us in the care of your patient. Please call with any questions. History of Present Illness History of present illness: Mr. Valenzuela is a 82 year old male All Systems Review: The remainder of the systems were reviewed and are negative Results 12/17/17 03:08 12/17/17 03:08 Lab Results 12/16/17 12/16/17 12/17/17 20:32 22:42 03:08 WBC Hgb Hct Plt Count APTT 69.6 H D Sodium Potassium Chloride Carbon Dioxide BUN Creatinine Glucose Calcium Troponin I 10.50 H* 11.06 H* 12/17/17 12/17/17 12/17/17 03:08 03:08 05:06 WBC 6.8 Hgb 12.7 L D Hct 37.7 Plt Count 149 APTT 66.3 H Sodium 139 Potassium 3.8 Chloride 107 Carbon Dioxide 20 L BUN 18 Creatinine 1.04 Glucose 99 Calcium 8.7 Troponin I 12/17/17 08:49 WBC Hgb Hct Plt Count APTT Sodium Potassium Chloride Carbon Dioxide BUN Creatinine Glucose Calcium Troponin I 6.26 H*
[2017-12-17] MEDS: amLODIPine 5 MG TABLET PO SCH (10:01)
--- NOTE | 2017-12-17 11:47 | Pre-Sedation Evaluation ---
Pre-sedation evaluation - Pre-sedation checklist Date of procedure: 12/17/17 Procedure: [facility] Recent Vitals: Last Vital Signs Temp 97.5 F L 12/17/17 11:33 Pulse 60 12/17/17 11:33 Resp 16 12/17/17 11:33 BP 133/76 12/17/17 11:33 Pulse Ox 95 12/17/17 11:33 H&P (including ROS) documented in medical record: Yes Previous reaction to sedatives/anesthetics: No Dietary Status: No solid food in preceding 4 hrs and no liquid in preceding 2 hrs Dentition: No loose teeth or bridges ASA Classification *see protocol: CLASS II-Mild systemic disease Plan of Care: Pt appropriate candidate for procedure/moderate/conscious sedation , Risks/benefits of procedure/sedation discussed w/ patient/family
[2017-12-17] MEDS ORDERED: Nitroglycerin 1,000 MCG/10 ML VIAL IV ONE (12:10)
[2017-12-17] MEDS ORDERED: ISOVUE-370 200 ML INFUS..BTL IV ONE (12:10)
[2017-12-17] MEDS ORDERED: *HR* Heparin 10,000 UNIT/10 ML VIAL ONE (12:10)
[2017-12-17] MEDS ORDERED: 0.9 % Sodium Chloride 1,000 ML ONE ×2 (12:10→12:56)
[2017-12-17] MEDS ORDERED: Heparin 1,000 UNITS/500 mL 500 ML ONE (12:10)
[2017-12-17] MEDS ORDERED: *HR* Midazolam HCl 2 MG/2 ML VIAL ONE (12:55)
[2017-12-17] MEDS ORDERED: *HR* FentaNYL (PF) 100 MCG/2 ML VIAL ONE (12:55)
[2017-12-17] MEDS ORDERED: Verapamil 5 MG/2 ML VIAL ONE (13:00)
[2017-12-17] MEDS ORDERED: Ondansetron 4 MG/2 ML VIAL IVP PRN (13:54)
--- NOTE | 2017-12-17 14:03 | Invasive Diagnostic Lab Proc ---
Name: Konrad Valenzuela Date of Study: 12/17/2017 Date: 1935 Ht: 68.1in Medical Record#: [id number] Age: 82 Wt: 209.44lb Gender: Male BSA: 2.09 Order #: [id number] BMI: 31.74 Physicians Procedure Physician: Robinson Cheney MD, [facility] Referring MD: Referring MD: Staff Name Position Time In Giuliano Zavala RN Pet Care Assistant 12:42 PM Karen Chino RT Monitor 12:43 PM Kory Valenzuela RT (R) Scrub 12:43 PM Indications Indication Non-Stemi Procedures Performed Procedure L HRT ARTERY/VENTRICLE ANGIO PRQ CARDIAC ANGIOPLAST 1 ART Pre-Procedure Checklist Informed consent is complete signed and on chart. H&P is on chart. ID band is on and ID verified with patient. Patient NPO for procedure The procedure was described for the patient and questions were answered. Blood Pressure: 118/67 ECG is on chart. Rhythm: NSR Plan of Care Patient will tolerate the procedure without complications. Adequate level of comfort will be maintained. Hemodynamics will remain stable Patient will recover from procedure without complications. Respiratory function will be maintained. Cardiac rhythm will remain stable. Patient temperature will be maintained. Patient and/or family have verbalized understanding of the procedure. Patient Education Chief Complaint/Reason for Test: Cardiac Cath Developmental Category: Geriatric (65+ years) Developmentally Appropriate for Age: Yes Learning Barriers: None Education Needs: Procedure Education Method: Verbal Information Taught: Cardiac Cath Educational Evaluation: Able to repeat information Intravenous Access Time IV Size Location DC'd Fluid/Drip Rate Units RN 20g 1 /" Patent On Arrival Lt Antecubital 0.9NaCl Giuliano Zavala RN Allergies lisinopril metoprolol Vital Signs Time BP (mmHg) HR (bpm) O2 Sat. RR (bpm) LOC 12:43 PM / % 5 = Fully awake and oriented or at pre-proc level 12:55 PM / % 5 = Fully awake and oriented or at pre-proc level 12:54 PM 170 / 91 61 100 % 12:58 PM 161 / 75 60 100 % 01:04 PM 166 / 81 60 98 % 01:08 PM 166 / 86 60 100 % 01:13 PM 143 / 72 60 91 % 01:18 PM 153 / 76 61 96 % 01:23 PM 143 / 70 59 94 % 01:28 PM 153 / 74 60 96 % 01:34 PM 150 / 77 60 98 % 01:38 PM 147 / 76 60 99 % 01:43 PM 153 / 70 63 99 % 14 Procedural Medications Time Medication Dose Units Method Given By 12:54 PM Oxygen 2 L/min nasal cannula Giuliano Zavala RN 12:55 PM Benadryl 25 mg Intravenous Giuliano Zavala RN 01:10 PM Versed 2 mg Intravenous Giuliano Zavala RN 01:10 PM Fentanyl 50 mcg Intravenous Giuliano Zavala RN 01:12 PM Lidocaine 2% 0.5 ml Subcutaneous Robinson Cheney MD, [facility] 01:16 PM Heparin 2000 units Nitroglycerin 200 mcg Verapamil 2.5 mg Intraarterial Robinson Cheney MD, FAC 01:32 PM Heparin 3000 units Intravenous Giuliano Zavala RN 01:38 PM Nitroglycerin 150 mcg Intracoronary Robinson Cheney MD 01:42 PM Plavix 300 mg Orally Giuliano Zavala RN ASA Classification: CLASS II- Mild systemic disease (i.e. well-controlled diabetes, hypertension, asthma, cigarette smoking) Rizwan Score Preprocedure Postprocedure Activity 2- Moves 4 extremities sustained head lift Activity 2- Moves 4 extremities sustained head lift Circulation 2- SBP +/= 20 points of pre-anesthetic level Circulation 2- SBP +/= 20 points of pre-anesthetic level Consciousness 2- Awake and alert oriented x 3 Consciousness 2- Awake and alert oriented x 3 O2 Saturation 2- Able to maintain O2 satruation of 92% on room air O2 Saturation 2- Able to maintain O2 satruation of 92% on room air Respiratory 2- Able to deep breathe and cough well Respiratory 2- Able to deep breathe and cough well Total Score 10 Total Score 10 Contrast Agent: Isovue Diagnostic Contrast: 104 ml Total Contrast: 104 ml Fluoro Dose: 749 mGy Activated Clotting Time Time Seconds to Clot 01:32 PM 187 Procedure Log Time Note Enter By 12:41 PM CathStat 12:42 PM 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 [facility] 12[facility] PM Patient charges- Angio tray pack, Navilyst 3mm J, Pulse Oximetry and ACIST tubing and transducer [facility] 12:43 PM Giuliano Zavala RN Position: Pet Care Assistant Time in: 12:42 [facility] 12[facility]43 PM Karen Chino RT Position: Monitor Time in: 12:43 [facility] 12:43 PM Kory Valenzuela (R) Position: Scrub Time in: 12:43 [facility] 12:43 PM Time: 12:43 Patient comfortable and pain free: Yes [facility] 12:43 PM Time: 12:43LOC: 5 = Fully awake and oriented or at pre-proc level [facility] 12:52 PM CathStat 12:52 PM Vitals capture started with the following parameters, Patient=Adult, Interval=5 min, Initial Ednmuwki=034 mmHg, Deflation Rate=5 mmHg, Cuff placed on Right Arm 12:54 PM HR=61 bpm, NOKD=895/91 mmhg, AbL4=352 % 12:54 PM Case Delayed No kkallner 12:54 PM Hair removed from procedure site in procedure lab using clippers. Right wrist prepped with Chloraprep by Kory Valenzuela (R), then patient was draped. Skin intact. kkallner 12:54 PM Physician arrived 12:54 kkallner 12:54 PM ASA Class CLASS II- Mild systemic disease (i.e. well-controlled diabetes, hypertension, asthma, cigarette smoking) kkallner 12:54 PM Meet and greet completed kkallner 12:54 PM Sign in performed according to hospital policy. kkallner 12:54 PM Procedure start 12:54 kkallner 12:54 PM Time: 12:54 Oxygen on at 2 L/min per nasal cannula by Giuliano [facility]ala RN [facility] 12:55 PM Time: 12:55 Benadryl 25 mg Intravenous Given by Giuliano Zavala RN [facility] 12:55 PM Time: 12:55 Patient comfortable and pain free: Yes kkallner 12:55 PM Time: 12:55LOC: 5 = Fully awake and oriented or at pre-proc level kkallner 12:55 PM Clinical Presentation: Non-STEMI kkallner 12:58 PM HR=60 bpm, JGLM=144/75 mmhg, SaJ6=942 % 01:04 PM HR=60 bpm, ODZS=865/81 mmhg, SpO2=98 % 01:08 PM HR=60 bpm, FCJL=744/86 mmhg, YdR8=425.0 % 01:10 PM Time: 13:10 Versed 2 mg Intravenous Given by Giuliano Zavala RN kkner 01:10 PM Time: 13:10 Fentanyl 50 mcg Intravenous Given by Giuliano Zavala RN kkallner 01:11 PM Time out performed according to hospital policy 01:12 PM Time: 13:12 .5 ml Lidocaine 2% to right radial Subcutaneous Given by Robinson Cheney MD, [facility] kkallner 01:12 PM Pressure channel 1 zeroed. 01:13 PM Access obtained by percutaneous puncture. 6Fr 10cm Terumo Antelope sheath placed in right Radial artery. [id number] kkallner 01:13 PM HR=60 bpm, WDJE=340/72 mmhg, SpO2=91.0 % 01:14 PM wire removed kkner 01:14 PM 5Fr TIG catheter inserted over the wire [facility] :14 PM 0.035 145cm VSI Julius-Torque wire [id number] kkallner 01:15 PM wire removed kkner 01:15 PM J wire reinserted kkner 01:16 PM wire removed kk:17 PM Time: 13:16 Patient given 2000 units Heparin, 200 mcg Nitroglycerin, and 2.5 mg Verapamil Intraarterial by Robinson Cheney MD, [facility]. This is given to reduce risk of vessel spasm and thrombosis. kkallner 01:18 PM HR=61 bpm, LCRJ=073/76 mmhg, SpO2=96.0 % 01:19 PM J wire reinserted to help with placement kkallner 01:19 PM wire removed kkner 01:20 PM Catheter removed kkner 01:20 PM 5Fr 3DRC catheter inserted over the wire [id number] allner :21 PM wire removed kkallner :21 PM RCA angiography performed in multiple views. ner :22 PM Recorded Pressure: Ao, HR=60, Condition=Condition 1 (Aorta) Ao 106/65/84 01:23 PM 6Fr RBL 3.5 Convey guide catheter was used to cannulate the PCI vessel successfully. reused? No kkallner :23 PM wire removed kkallner :23 PM HR=59 bpm, OULH=913/70 mmhg, SpO2=94.0 % 01:24 PM Catheter selectively placed in left ventricle kkallner :24 PM Bolus angiogram of left Ventricle complete: 10 ml/sec for a total of 25 mls kkallner 01:25 PM Recorded Pressure: LV, HR=60, Condition=Condition 1 (Left Ventricle) LV 123/8/17 01:26 PM Recorded Pressure: Ao, HR=60, Condition=Condition 1 (Aorta) Ao 139/67/94 01:27 PM catheter repositioned into LCA allner :27 PM LCA angiography performed in multiple views. kkallner :27 PM Coronary Dominance: right kkallner :27 PM Lesion found in Mid LAD. Pre Stenosis: 99 Pre KRISHNA Flow: 3: Complete and Brisk Flow/Perfusion allner :27 PM Lesion found in Mid RCA. Pre Stenosis: 60 Pre KRISHNA Flow: kkallner :28 PM HR=60 bpm, YTXQ=579/74 mmhg, SpO2=96.0 % 01:29 PM .014 [place] 190cm guide wire across target lesion- successful. reused? No kkallner 01:30 PM ACT drawn allner :31 PM Recorded Pressure: Ao, HR=62, Condition=Condition 1 (Aorta) Ao 135/66/93 01:32 PM At 13:32 the ACT was 187 seconds. allner :32 PM Time: 13:32 Heparin 3000 units Intravenous Given by Giuliano Zavala RN allner :32 PM 1.5 mm x 15 mm Emerge Monorail balloon across target lesion- successful. reused? No :34 PM Balloon inflated @ 14 esequiel for 14 seconds kkallner :34 PM HR=60 bpm, EFUY=334/77 mmhg, SpO2=98.0 % :34 PM Balloon inflated @ 14 esequiel for 10 seconds kkallner :35 PM Balloon catheter removed intact. allner :36 PM 2.5 mm x 20mm NC Emerge balloon across target lesion- successful. reused? No kkallner :36 PM Recorded Pressure: Ao, HR=60, Condition=Condition 1 (Aorta) Ao 136/67/95 01:37 PM Balloon inflated @ 20 esequiel for 23 seconds kkallner :38 PM Balloon inflated @ 24 esequiel for 17 seconds kkallner :38 PM Recorded Pressure: Ao, HR=60, Condition=Condition 1 (Aorta) Ao 127/84/105 01:38 PM HR=60 bpm, KJGM=247/76 mmhg, SpO2=99 % 01:38 PM Time: 13:38 Nitroglycerin 150 mcg Intracoronary Given by Robinson Cheney MD kkallner 01:39 PM Balloon catheter removed intact. kkallner 01:39 PM Guide wire removed intact. kkallner 01:40 PM Guide catheter removed intact. kkallner 01:42 PM Time: 13:42 Plavix 300 mg Orally Given by Giuliano Zavala RN kkallner 01:43 PM Procedure completed at 13:43 kkallner 01:43 PM Did you address KRISHNA flow and Dominance? Yes kkallner 01:43 PM HR=63 bpm, OVZN=923/70 mmhg, SpO2=99.0 % 01:44 PM Sign out completed: Radiation Dose 748.96 mGy Fluoro Time: 7.3 Isovue 370 - 200ml contrast 104 ml given by Robinson Cheney MD, [facility]. Complications: NoneCardiac Rehab Consult needed: YesConfirmed administered medications: Yes kkallner 01:44 PM Isovue 370 - 200ml,1 Bottle(s) used. kkallner 01:44 PM 12 ml air in Vasc Band. kkallner 01:44 PM Estimated Blood Loss: minimal kkallner 01:45 PM Post ECG NSR kkallner 01:45 PM Post Blood Pressure 153/70 kkallner 01:45 PM 13:45 Post Pulses Rt Radial 1+ kkallner 01:45 PM Information taught Cardiac Cath, PCI, and Vasc Band kkallner 01:45 PM Education needs Procedure, Plan of Care, and Responsibilities of Patient in Care kkallner 01:45 PM Learning barriers :None kkallner 01:45 PM Education Methods Verbal kkallner 01:45 PM Education evaluation Able to repeat information kkallner 01:45 PM Site status No bleeding/hematoma - Rt Wrist as reported by Kory Valenzuela RT (R) at 13:45 kkallner 01:45 PM Plavix, Effient or Brilinta given Yes kkallner 01:45 PM Delay to floor No kkallner 01:45 PM Patient out of room: 13:45 kkallner 01:45 PM Family placed in consult room. kkallner 01:45 PM Complications: None kkallner 01:45 PM Fluoro Time: 7.3 kkallner 01:46 PM Isovue 370 - 200ml contrast 104 ml given by Robinson Cheney kkallner 01:46 PM Radiation Dose 748.96 mGy kkallner 01:49 PM Lesion found in LMCA. Pre Stenosis: 30 Pre KRISHNA Flow: kkallner 01:49 PM Lesion found in Proximal LAD. Pre Stenosis: 60 Pre KRISHNA Flow: kkallner 01:49 PM Lesion found in Proximal Circumflex. Pre Stenosis: 20 Pre KRISHNA Flow: kkallner 01:50 PM Left Main Coronary Artery with 30% stenosis kkallner 01:50 PM Proximal Left Anterior Descending Coronary Artery with 60% stenosis. If graft is supplying this territory, 0 % stenosis. kkallner 01:50 PM Mid/Distal Left Anterior Descending Coronary Artery and diagonal branches with 99% stenosis. If graft is supplying this area, 0 % stenosis kkallner 01:50 PM Circumflex, Obtuse Marginal, Left Posterior Descending, and Left Posterolateral Coronary Arteries with 20 % stenosis. If graft is supplying this area, 0 % stenosis kkallner 01:50 PM Right Coronary, Right Posterior Descending Arteries with Right Posterolateral and Acute Marginal branches with 60 % stenosis. If graft is supplying this area, 0 % stenosis kkallner 01:50 PM Ramus with 0% stenosis. If graft is supplying this area, 0 % stenosis kkallner 01:54 PM Report given to Natalia STROUD [facility]. 13:[facility] Complications Complication None None Hemodynamics Pressures Site Systolic/A Wave Diastolic/V Wave Mean AO 106 65 84 LV 123 8 17 AO 139 67 94 AO 135 66 93 AO 136 67 95 AO 127 84 105 Post Procedure Information Blood Pressure: 153/70 mmHg Rhythm: NSR Post procedural instructions were given Site Checks Time Location Status Staff Sheath In? Note 01:45 PM Rt Wrist No bleeding/hematoma Kory Valenzuela RT (R) Pulses Time Site Pre-Procedure Post-Procedure Note Bilateral DP & PT 2+ Bilateral radial 2+ 1:45:00 PM Rt Radial 1+ Updated by Karen Chino, RT (R) on 12/17/2017 1:58:14 PM electronically signed on 12/17/2017 1:58:42 PM with status of Final
--- NOTE | 2017-12-17 14:06 | Internal Med Progress Note ---
Date of Encounter: 12/17/17 Time of Encounter: 15:08 - Assessment and plan (1) Chest pain Current Visit: Yes Status: Acute Assessment and plan: trop leak - trend trop - heparin gtt started in the ED Patient returned from [facility] today Cardiology recommendations pending. Heparin drip has been discontinued Qualifiers: Chest pain type: other chest pain Qualified Code(s): R07.89 - Other chest pain; R07.8 - Other chest pain (2) Hypertensive urgency Current Visit: Yes Status: Acute Assessment and plan: only on 100mg losartan at home added back norvasc, imdur IV hydralazine prn (3) CAD (coronary artery disease) Current Visit: Yes Status: Acute Assessment and plan: s/p 5 stents - follow closely for now Qualifiers: Coronary Disease-Associated Artery/Lesion type: [place] artery [place] vs. transplanted heart: [place] heart Associated angina: angina presence unspecified Qualified Code(s): I25.10 - Atherosclerotic heart disease of [place] coronary artery without angina pectoris (4) HLD (hyperlipidemia) Current Visit: Yes Status: Acute Assessment and plan: continue med Qualifiers: Hyperlipidemia type: mixed hyperlipidemia Qualified Code(s): E78.2 - Mixed hyperlipidemia - Time Spent With Patient Total time spent is greater than 50% in coordination of care (as documented) at patient's floor/unit and/or counseling patient: - Subjective Interval history: Returned from [facility], no complaints, doing well. - Constitutional Vitals: Temp Pulse Resp BP Pulse Ox 97.5 F L 60 16 133/76 95 12/17/17 11:33 12/17/17 11:33 12/17/17 11:33 12/17/17 11:33 12/17/17 11:33 - Head Head exam: Present: atraumatic, normocephalic - Eye Eye exam: Present: PERRL, conjuntiva pink, sclera anicteric Pupils: Present: PERRL - Neck Neck exam general surgery: Present: supple, trachea midline. Absent: lymphadenopathy - Respiratory Respiratory exam: Present: CTAB. Absent: accessory muscle use, rales, rhonchi, wheezes - Cardiovascular Cardiovascular exam: Present: RRR, +S1, +S2. Absent: diastolic murmur, gallop, rubs, systolic murmur - GI/Abdominal GI/Abdominal exam: Present: normal bowel sounds, soft, no peritoneal signs. Absent: distended, tenderness - Extremities Exam Extremities exam: Present: warm, radial pulses palpable and symmetrical. Absent : calf tenderness, cyanotic, pedal edema - Neurological Exam Neurological exam: Present: CN II-XII intact, oriented X3, no focal deficits. Absent: pronater drift, facial droop, speech deficit - Skin Skin exam: Present: dry, intact Internal Medicine: Result - Labs CBC & Chem 7: 12/17/17 03:08 12/17/17 03:08 Labs: Short CBC 12/17/17 Range/Units 03:08 WBC 6.8 (4.3-11.1) K/mcL Hgb 12.7 L D (12.9-16.9) g/dL Hct 37.7 (37.5-50.1) % Plt Count 149 (140-400) K/mcL Neutrophils # 4.3 (1.6-8.9) K/mcL BMP 12/17/17 03:08 Sodium 139 Potassium 3.8 Chloride 107 Carbon Dioxide 20 L BUN 18 Creatinine 1.04 Glucose 99 Calcium 8.7 Cardiac Enzymes 12/16/17 12/17/17 12/17/17 Range/Units 20:32 03:08 08:49 Troponin I 10.50 H* 11.06 H* 6.26 H* (< 0.04) ng/mL - ABG Interpretation ABG results: PT/INR, D-dimer PT 10.5 Seconds (9.4-12.1) 12/16/17 13:18 Consult Discharge Plan - Plan Referrals: NONE,PCP [Primary Care Provider] -
--- NOTE | 2017-12-17 16:25 | Electrocardiograph Report ---
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
--- NOTE | 2017-12-17 16:30 | Electrocardiograph Report ---
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
--- NOTE | 2017-12-17 16:44 | Electrocardiograph Report ---
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
[2017-12-18 04:22] LABS: Basophils % 0.4 %; Eosinophils # 0.2 K/mcL (0.0-0.6); Eosinophils % 3.3 %; Hematocrit 39.5 % (37.5-50.1); Hemoglobin 13.3 g/dL (12.9-16.9); Immature Granulocytes % 0.4 % (0-4); Lymphocytes # 1.2 K/mcL (0.6-4.6); Lymphocytes % 17.2 %; Mean Corpuscular HGB Conc 33.7 g/dL (31.6-35.5); Mean Corpuscular Hemoglobin 29.6 pg (28.0-33.3); Mean Corpuscular Volume 87.8 fL (83.0-100.0); Mean Platelet Volume 10.3 fL (9.4-12.4); Monocytes # 0.6 K/mcL (0.0-1.3); Monocytes % 9.2 %; Neutrophils # 4.8 K/mcL (1.6-8.9); Platelet Count 160 K/mcL (140-400); Red Cell Distribution Width 13.6 % (11.5-14.5); Segmented Neutrophils % 69.5 %
[2017-12-18 04:39] LABS: BUN/Creatinine Ratio 15 (6-26); Blood Urea Nitrogen 18 mg/dL (8-23); Carbon Dioxide 22 mEq/L (23-29); Chloride 107 mEq/L (98-107); Glucose 105 mg/dL (70-105); Osmolality,Calculated 286 (280-300); Potassium 3.9 mEq/L (3.5-5.1); Sodium 137 mEq/L (136-145); eGFR For African Americans > 60 (> 60); eGFR For Non-African Americans 59 (> 60)
[2017-12-18] MEDS: amLODIPine 5 MG TABLET PO SCH (08:49)
[2017-12-18 11:00] VITALS: BP 147/74
[2017-12-18] MEDS ORDERED: Aspirin 81 MG TAB.CHEW PO SCH (11:30)
--- NOTE | 2017-12-18 12:50 | Cardiology Progress Note ---
Date of Encounter: 12/18/17 Time of Encounter: 12:47 Assessment and Plan (1) NSTEMI (non-ST elevated myocardial infarction) Current Visit: Yes Status: Acute Peak troponin 11.06, downtrended to 6.26. [facility] yesterday severe 1 vessel CAD--successful PTCA to mLAD for in stent restenosis. Final report pending. TTE EF 60-65%, mild cLVH, mild LVDD, mild TR, mild-moderate UT. Pt denies chest pain or dyspnea overnight. Continue ASA, Statin, Plavix, ARB. BB listed as allergy--discussed and he denies any known allergy. Low dose BB started. Right radial access site healing well. No bleeding, hematoma or ecchymosis noted. Restrictions discussed. Follows with cardiology in [place] and they would like to continue to follow there. Follow-up with [place] flight test engineer in 1 week. Cardiology signing off. Reconsult PRN. (2) CAD (coronary artery disease) Current Visit: Yes Status: Acute Known prior CAD and PCI. S/P PTCA to mLAD yesterday. ASA, Plavix, Statin, ARB, BB. Qualifiers: Coronary Disease-Associated Artery/Lesion type: [place] artery [place] vs. transplanted heart: [place] heart Associated angina: angina presence unspecified Qualified Code(s): I25.10 - Atherosclerotic heart disease of [place] coronary artery without angina pectoris Discussion w patient/family: The assessment and plan as outlined above was discussed with the patient and/or family members who expressed understanding and agreement. All questions were answered. Thank you for involving us in the care of your patient. Please call with any questions. I will discuss all the above with Dr. Hill and make changes as necessary. Subjective Principal diagnosis: NSTEMI Interval history: Peak troponin 11.06. [facility] yesterday severe 1 vessel CAD--successful PTCA to mLAD for in stent restenosis. Final report pending. TTE EF 60-65%, mild cLVH, mild LVDD, mild TR, mild-moderate UT. Pt denies chest pain or dyspnea overnight. Objective Vital Signs, Last 4 Hours Pulse Resp BP Pulse Ox 12/18/17 10:59 59 18 147/74 96 Vital Signs Temp Pulse Resp BP Pulse Ox 12/18/17 10:59 59 18 147/74 96 12/18/17 06:37 97.8 F 60 18 141/80 96 12/18/17 04:34 98.1 F 61 18 138/79 96 12/18/17 01:06 98.7 F 59 18 146/76 94 12/17/17 20:23 95 12/17/17 20:02 98.1 F 59 18 137/71 95 12/17/17 17:16 63 18 161/81 97 12/17/17 16:38 59 16 151/79 97 12/17/17 15:41 98.2 F 12/17/17 15:30 59 16 137/82 94 12/17/17 15:15 61 140/85 94 12/17/17 14:33 61 14 143/76 94 12/17/17 14:31 61 14 143/76 94 12/17/17 14:15 62 148/70 95 12/17/17 14:07 61 16 151/84 94 Intake and Output 12/17/17 12/18/17 12/18/17 23:59 07:59 15:59 Intake Total 300 / 300 100 / 100 240 / 240 Output Total 1100 / 1100 900 / 900 Balance 300 / 300 -1000 / -1000 -660 / -660 Intake: Oral 300 / 300 100 / 100 240 / 240 Output: Urine 1100 / 1100 900 / 900 Other: Meal Breakfast Percent of Meal Consumed 100% # Voids 1 Weight 107.3 kg Patient Weight 12/18/17 23:59 Weight 107.3 kg General: Conversant HEENT: Atraumatic, Normocephaly, Mucus Membranes Moist Neck: No JVD, Normal carotid pulses Cardiac: Reg Rate and Rhythm, Normal S1 and S2, No Murmur Lungs: Normal Breath Sounds, No Wheeze, Rales, Rhonchi Neuro: Alert and responsive, No focal deficits noted Abdomen: Soft, Non-Tender Skin: Other (right radial access site healing well. No bleeding, hematoma or ecchymosis.) Musculoskeletal: No Chest Wall Tenderness Extremities: No Clubbing, No Cyanosis, No Edema, Normal Pulses Results 12/18/17 04:03 12/18/17 04:03 Lab Results 12/17/17 12/18/17 12/18/17 12:16 04:03 04:03 WBC 6.9 Hgb 13.3 Hct 39.5 Plt Count 160 APTT 62.9 H Sodium 137 Potassium 3.9 Chloride 107 Carbon Dioxide 22 L BUN 18 Creatinine 1.18 Glucose 105 Calcium 9.0 Short CBC 12/18/17 Range/Units 04:03 WBC 6.9 (4.3-11.1) K/mcL Hgb 13.3 (12.9-16.9) g/dL Hct 39.5 (37.5-50.1) % Plt Count 160 (140-400) K/mcL Neutrophils # 4.8 (1.6-8.9) K/mcL BMP 12/18/17 Range/Units 04:03 Sodium 137 (136-145) mEq/L Potassium 3.9 (3.5-5.1) mEq/L Chloride 107 (98-107) mEq/L Carbon Dioxide 22 L (23-29) mEq/L BUN 18 (8-23) mg/dL Creatinine 1.18 (0.70-1.30) mg/dL Glucose 105 (70-105) mg/dL Calcium 9.0 (8.6-10.3) mg/dL Impressions Echocardiogram 12/17/17 09:26 Impressions: LVEF 60-65%. Mild concentric left ventricular hypertrophy. Mild left ventricular diastolic dysfunction. Normal right ventricular structure and function. Mild tricuspid regurgitation. Mild-moderate pulmonic regurgitation. No pulmonary hypertension. Left Ventricular Wall Motion: Rest Echo Findings All wall segments showed normal motion. Findings: Study Quality * Technically challenging due to body habitus. ECG Findings * Normal sinus rhythm. Left Ventricle * LVEF 60-65%. * Mild concentric left ventricular hypertrophy. * Mild left ventricular diastolic dysfunction. Right Ventricle * Normal right ventricular structure and function. Left Atrium * Mildly dilated left atrium. Right Atrium * Normal right atrial size. Aortic Valve * No aortic regurgitation. * Mildly to moderately thickened and calcified aortic valve leaflets. * Trileaflet aortic valve. * No aortic stenosis. Mitral Valve * No mitral regurgitation. * Normal mitral valve structure. * No mitral stenosis. Tricuspid Valve * Tricuspid valve not well visualized. * Mild tricuspid regurgitation. * Estimated RA pressure is 3 mmHg. * Estimated RVSP is 27 mmHg. * No pulmonary hypertension. Pulmonic Valve * Pulmonic valve is not well visualized. * No pulmonic stenosis. * Mild-moderate pulmonic regurgitation. Pulmonary Artery * Pulmonary artery not well visualized. Aorta * Normally sized aortic root. Pericardium * There is no pericardial effusion present. Interatrial Septum * No evidence of PFO by color Doppler. IVC * Normal IVC dimensions and inspiratory collapse. Active Medications Hydrocodone Bitart/Acetaminophen ([place] 5-325 Mg) 1 tab PO Q6HR PRN PRN Reason: Pain Stop: 06/17/18 22:46 Amlodipine Besylate (Norvasc) 10 mg PO DAILY [facility] PRN Reason: Protocol Stop: 06/17/18 16:16 Last Admin: 12/18/17 08:49 Dose: 10 mg Aspirin (Aspirin) 81 mg PO DAILY [facility] Stop: 06/19/18 11:31 Atorvastatin Calcium (Lipitor) 10 mg PO HS [facility] Stop: 06/17/18 21:01 Last Admin: 12/17/17 20:07 Dose: 10 mg Clopidogrel Bisulfate (Plavix) 75 mg PO DAILY [facility] Stop: 06/18/18 09:01 Last Admin: 12/18/17 08:48 Dose: 75 mg Heparin Sodium (Porcine) (Heparin Lock) 500 unit IV ONCE PRN PRN Reason: Port Flush while in RADIOLOGY Stop: 12/18/17 13:12 Hydralazine HCl (Hydralazine) 10 mg IVP Q4H PRN PRN Reason: Hypertension Stop: 06/17/18 16:14 Levothyroxine Sodium (Synthroid) 75 mcg PO 0630 [facility] Stop: 06/18/18 06:31 Last Admin: 12/18/17 06:30 Dose: 75 mcg Losartan Potassium (Cozaar) 100 mg PO DAILY [facility] PRN Reason: Protocol Stop: 06/18/18 09:01 Last Admin: 12/18/17 08:48 Dose: 100 mg Naloxone HCl (Narcan) 0.4 mg IVP Q2MIN PRN PRN Reason: SEE COMMENTS Stop: 06/17/18 16:15 Ondansetron HCl (Zofran) 4 mg IVP Q6HR PRN; Protocol PRN Reason: Nausea And Vomiting Stop: 06/18/18 13:55 - Imaging and Cardiology Echo: report reviewed Cardiac cath: report reviewed - EKG Interpretation EKG results cardiology: other (12 hr tele AVG HR 60, intermittently paced) Consult Discharge Plan - Plan Instructions: Myocardial Infarction (DC), Chest Pain (DC), Left Heart Catheterization (DC), Right Heart Catheterization (DC), Coronary Intravascular Stent Placement (DC), Chronic Hypertension (DC) Additional Instructions: RISK FACTORS: STOP SMOKING: If you smoke, STOP. Smoking or tobacco use significantly increases your risk of heart disease because nicotine causes the arteries to narrow or constrict. It also causes fats to stick to the artery. Your chances of having a heart attack are greatly increased if you continue to smoke. For more information, call the education line for smoking cessation 9-763-[phone] EAT A LOW FAT/CHOLESTEROL/SODIUM DIET: This diet may help reduce your chances of having a heart attack. LIFTING: With affected extremity: Avoid bending, pushing off and lifting more than 2 pounds for 24 hours The following 48 hours, avoid lifting anything more than 5 pounds Avoid strenuous activity or repetitive motions ACTIVITY: You may walk or climb stairs as tolerated You can resume sexual activity as tolerated In general, you are encouraged to engage in a minimum of 30 minutes or more of moderate intensity physical activity, such as brisk walking, daily or at least 3 -4 times weekly BATHING Do not submerge the site into water (bath tub, hot tub, swimming pool, dishes) for 1 week. This can be a source for infection into the blood stream. You may shower after 24 hours SITE CARE: After 24 hours, you may remove the dressing and leave the site open to air. Keep the site clean and dry. Clean gently and pat dry. You can expect bruising and tenderness that gradually resolve within a week or two. Return to work as instructed per your physician Resume driving as instructed per physician Keep all scheduled follow up appointments Resume medications as instructed IMPORTANT: If prescribed a Platelet Aggregation Inhibitor such as, Plavix, Brilinta or Effient: Duration of therapy is minimum one year These medications are often used in combination with Aspirin in prevention of future heart attacks Never discontinue unless consult with your [employer] Stitcher STROKE (CVA) Risk factors for a stroke are: Age, cigarette smoking, diabetes, excessive alcohol consumption, family history, high blood pressure, overweight, physical inactivity, prior stroke, heart attack, diagnosis of carotid artery stenosis or other artery disease. Warning signs: Sudden numbness or weakness of the face, arm or leg; especially on one side of the body, sudden confusion, trouble speaking or understanding, sudden trouble seeing in one or both eyes, sudden trouble walking, dizziness, loss of balance or coordination, sudden severe headache with no cause. Call 911 or go to the Emergency Room. CONGESTIVE HEART FAILURE: If you have been diagnosed with Congestive Heart Failure (CHF) and your symptoms return, make an appointment with your physician Weigh yourself daily. Notify your physician if you have a weight gain of two or more pounds in one day or five or more pounds in one week. If you experience any difficulty breathing, please call 911 BLEEDING: Although the risk of bleeding is minimal, it can happen. If you have any bleeding from the site, apply firm pressure above the puncture site for 10-15 minutes. If the bleeding does not stop, continue manual pressure and call 911 Contact [facility] ( ) if: You develop a fever greater than 101 degrees Fahrenheit Your site becomes reddened or has any drainage You have an increase in pain or burning at the site or if a large knot forms at the site. If you experience chest pain, shortness of breath, dizziness, or extreme tiredness, stop the activity and rest. Please notify [facility] office if you experience any of these symptoms and they are not relieved by rest please call 911! Referrals: Jerald Levin MD [Non-Partnered Physician] - 12/26/17 10:30 am Cain Hill [Partnered Physician] - (Will call patient for follow up appointment.)
--- NOTE | 2017-12-18 16:08 | Discharge Summary ---
- NOTES TO OUTPATIENT PROVIDER Notes to Outpatient Provider: Follow-up with cardiology in 1 week, follow-up with family doctor in 1-2 weeks Orders not resulted at time of discharge: Pending orders 12/17/17 09:23 CL Cardiac Catheterization [CL] Routine 12/18/17 06:00 ECG 12 lead ECG [ECG] AM 0600 Date of Encounter: 12/18/17 Time of Encounter: 16:02 - Discharge Diagnosis (1) Chest pain Priority: Primary (non st elev) Status: Acute Qualifiers: Chest pain type: chest pain due to myocardial ischemia Ischemic chest pain type: unspecified angina pectoris type Qualified Code(s): I25.9 - Chronic ischemic heart disease, unspecified (2) Hypertensive urgency Priority: Primary Status: Acute (3) CAD (coronary artery disease) Priority: Primary Status: Acute Qualifiers: Coronary Disease-Associated Artery/Lesion type: [place] artery [place] vs. transplanted heart: [place] heart Associated angina: angina presence unspecified Qualified Code(s): I25.10 - Atherosclerotic heart disease of [place] coronary artery without angina pectoris (4) HLD (hyperlipidemia) Priority: Secondary Status: Acute Qualifiers: Hyperlipidemia type: mixed hyperlipidemia Qualified Code(s): E78.2 - Mixed hyperlipidemia (5) NSTEMI (non-ST elevated myocardial infarction) Priority: Primary Status: Acute Hospital course: Mr. Valenzuela is a 82 year old male with past medical history of coronary artery disease a status post 5 stent done about 6 years ago, patient came to the hospital was complaining of acute onset of right-sided chest pain radiating to right arm or right axilla 10 out of 10 in severity, patient came to emergency room, CT chest showed no evidence of pulmonary embolism EKG paced is nonspecific T-wave changes troponin peaked to 11.06, left heart catheterization done yesterday which showed one vessel coronary artery disease successful PTCA to an LVAD for in-stent restenosis, HAMIDA done ejection fraction was 60-65%, cardiology recommended to continue aspirin and statin Plavix and AARP beta all small dose was started. Today patient denies any chest pain or shortness of breath, right radial access site healing well bleeding hematoma or ecchymosis. I had long discussion with patient counseling about lifestyle modification counseling about exercise counseling about medication compliance. - Time Spent with Patient Total time spent providing and/or coordinating discharge services: - Discharge Medications Prescriptions: amLODIPine [Norvasc] 10 mg PO DAILY #90 tablet Atorvastatin [Lipitor] 20 mg PO HS #90 tablet Losartan [Cozaar] 100 mg PO DAILY #90 tablet Metoprolol [Lopressor] 25 mg PO BID 90 Days #90 tablet Home Medications: Levothyroxine [Synthroid] 75 mcg PO DAILY 05/19/15 [History] Clopidogrel [Plavix] 75 mg PO DAILY 12/05/16 [History] HYDROcodone/Acet 5/325 mg [[place] 5-325 mg] 1 tab PO Q6H PRN #10 tab 12/05/16 [Rx ] Atorvastatin [Lipitor] 20 mg PO HS #90 tablet 12/18/17 [Rx] Losartan [Cozaar] 100 mg PO DAILY #90 tablet 12/18/17 [Rx] Metoprolol [Lopressor] 25 mg PO BID 90 Days #90 tablet 12/18/17 [Rx] amLODIPine [Norvasc] 10 mg PO DAILY #90 tablet 12/18/17 [Rx] Allergies/Adverse Reactions: 3 Allergy/AdvReac Type Severity Reaction Status Date / Time lisinopril Allergy Rash Verified 12/16/17 12:48 metoprolol Allergy See Verified 12/16/17 12:48 Comments Date of admission: 12/16/17 16:22 Primary care physician: PCP NONE Consults: 12/16/17 22:39 Consult to Cardiology [CONS] Routine Comment: Consulting Provider: Cardiology Annie Reason for Consult: NSTEMI Time Notified: 22:39 Call Completed: Yes 12/17/17 13:54 Consult to Cardiac Rehabilitation-Phase1 [CONS] Routine Comment: Reason for Consult: post op PCI Call Completed: Yes Discharging clinician: Grecia Brito Anticipated date of discharge: 12/18/17 - Constitutional Vitals: Temp Pulse Resp BP Pulse Ox 97.8 F 61 18 147/74 96 12/18/17 06:37 12/18/17 15:37 12/18/17 15:37 12/18/17 10:59 12/18/17 15:37 - Patient Status Disposition: Home, Self-Care Condition: Fair Functional capacity at discharge: independent ambulation Overall status at discharge: patient is progressing back to baseline - Discharge Instructions Instructions: Myocardial Infarction (DC), Chest Pain (DC), Left Heart Catheterization (DC), Right Heart Catheterization (DC), Coronary Intravascular Stent Placement (DC), Chronic Hypertension (DC) Follow Up With: Jerald Levin MD [Non-Partnered Physician] - 12/26/17 10:30 am Cain Hill [Partnered Physician] - (Will call patient for follow up appointment.) Additional Instructions: RISK FACTORS: STOP SMOKING: If you smoke, STOP. Smoking or tobacco use significantly increases your risk of heart disease because nicotine causes the arteries to narrow or constrict. It also causes fats to stick to the artery. Your chances of having a heart attack are greatly increased if you continue to smoke. For more information, call the education line for smoking cessation 1-848-HDKLFBX EAT A LOW FAT/CHOLESTEROL/SODIUM DIET: This diet may help reduce your chances of having a heart attack. LIFTING: With affected extremity: Avoid bending, pushing off and lifting more than 2 pounds for 24 hours The following 48 hours, avoid lifting anything more than 5 pounds Avoid strenuous activity or repetitive motions ACTIVITY: You may walk or climb stairs as tolerated You can resume sexual activity as tolerated In general, you are encouraged to engage in a minimum of 30 minutes or more of moderate intensity physical activity, such as brisk walking, daily or at least 3 -4 times weekly BATHING Do not submerge the site into water (bath tub, hot tub, swimming pool, dishes) for 1 week. This can be a source for infection into the blood stream. You may shower after 24 hours SITE CARE: After 24 hours, you may remove the dressing and leave the site open to air. Keep the site clean and dry. Clean gently and pat dry. You can expect bruising and tenderness that gradually resolve within a week or two. Return to work as instructed per your physician Resume driving as instructed per physician Keep all scheduled follow up appointments Resume medications as instructed IMPORTANT: If prescribed a Platelet Aggregation Inhibitor such as, Plavix, Brilinta or Effient: Duration of therapy is minimum one year These medications are often used in combination with Aspirin in prevention of future heart attacks Never discontinue unless consult with your Political Theory Professor STROKE (CVA) Risk factors for a stroke are: Age, cigarette smoking, diabetes, excessive alcohol consumption, family history, high blood pressure, overweight, physical inactivity, prior stroke, heart attack, diagnosis of carotid artery stenosis or other artery disease. Warning signs: Sudden numbness or weakness of the face, arm or leg; especially on one side of the body, sudden confusion, trouble speaking or understanding, sudden trouble seeing in one or both eyes, sudden trouble walking, dizziness, loss of balance or coordination, sudden severe headache with no cause. Call 911 or go to the Emergency Room. CONGESTIVE HEART FAILURE: If you have been diagnosed with Congestive Heart Failure (CHF) and your symptoms return, make an appointment with your physician Weigh yourself daily. Notify your physician if you have a weight gain of two or more pounds in one day or five or more pounds in one week. If you experience any difficulty breathing, please call 911 BLEEDING: Although the risk of bleeding is minimal, it can happen. If you have any bleeding from the site, apply firm pressure above the puncture site for 10-15 minutes. If the bleeding does not stop, continue manual pressure and call 911 Contact [facility] ( ) if: You develop a fever greater than 101 degrees Fahrenheit Your site becomes reddened or has any drainage You have an increase in pain or burning at the site or if a large knot forms at the site. If you experience chest pain, shortness of breath, dizziness, or extreme tiredness, stop the activity and rest. Please notify [facility] office if you experience any of these symptoms and they are not relieved by rest please call 911! - Diet and Activity Activity: resume usual activities as tolerated Diet: low fat, low cholesterol, low salt diet
--- NOTE | 2017-12-21 20:29 | Electrocardiograph Report ---
[address] [address] Test Date: 2017-12-17 Pat Name: Konrad Valenzuela Department: 104 Room: 2NE16 Gender: M [employer] Driver: : [id number] Requested By: Robinson Cheney Order Number: [id number] Reading MD: Cristian Abreu Measurements Intervals [place] Rate: 60 P: 60 CA: 283 QRS: -39 QRSD: 94 T: -89 QT: 497 QTc: 497 Interpretive Statements ELECTRONIC ATRIAL PACEMAKER MARKED LEFT AXIS DEVIATION MODERATE T-WAVE ABNORMALITY, CONSIDER ANTEROLATERAL ISCHEMIA MODERATE T-WAVE ABNORMALITY, CONSIDER INFERIOR ISCHEMIA Electronically Signed On 12-21-2017 20:28:00 EDT by Cristian Abreu
== END 2017-12-18 19:21 | disposition home or self-care (01) ==
LOC: EMEROO 12:39 → 2SOUTHHOLD 12:39 → 2NENU 12-17 17:15
PROVIDERS: ADMIT Family Medicine; ATTEND Family Medicine